=== PATIENT | male | born 1995 | race Caucasian/White ===

== ENCOUNTER 2016-06-08 | Outpatient (CLI) | payer OTHER | END 2016-06-08 15:24 | disposition short-term general hospital (02) | DX: J93.9 Pneumothorax, unspecified (principal) | CPT/HCPCS: A0170; A0425; A0426 ==

== ENCOUNTER 2016-06-08 01:52 | Inpatient (IN) | payer MEDICAID, OTHER ==
[2016-06-08] MEDS ORDERED: KETOROLAC 60 MG/2 ML VIAL IVP STA (02:02)
[2016-06-08] MEDS ORDERED: KETOROLAC 30 MG/ML VIAL ONE (02:16)
[2016-06-08] MEDS ORDERED: HYDROmorphone 2 MG TABLET PO PRN (03:09)
[2016-06-08] MEDS: SODIUM CHLORIDE FLUSH 0.9% 10 ML SYRINGE IVP PRN ×2 (04:48→06:58)
[2016-06-08] MEDS: HYDROmorphone 1 MG/ML SYRINGE IVP PRN ×5 (04:48→13:55)
[2016-06-08] MEDS: SODIUM CHLORIDE FLUSH 0.9% 10 ML SYRINGE IVP SCH ×2 (05:38→15:04)
[2016-06-08] MEDS ORDERED: ENOXAPARIN 40 MG/0.4 ML SYRINGE SUBQ SCH (09:00)
[2016-06-08] MEDS: diphenhydrAMINE 25 MG CAPSULE PO PRN ×2 (10:39→15:17)
[2016-06-08] MEDS ORDERED: LORazepam 0.5 MG TABLET PO PRN (14:16)
[2016-06-08] MEDS ORDERED: LORazepam 0.5 MG TABLET PO ONE (15:00)
== END 2016-06-08 15:30 | disposition short-term general hospital (02) | DRG 201 ==
DX: J93.83 Other pneumothorax (principal); F90.9 Attention-deficit hyperactivity disorder, unspecified type; F17.210 Nicotine dependence, cigarettes, uncomplicated